=== PATIENT | female | born 1960 | race Caucasian/White ===

== ENCOUNTER 2017-10-11 12:30 | Inpatient (IN) | payer MEDICARE ==
[~2017-10-11] VITALS: Ht 175.3 cm; Wt 106.7 kg
[2017-10-11 14:55] VITALS: BP 129/82
[2017-10-11] MEDS ORDERED: NITROGLYCERIN SINGLE TAB 0.4 MG SL PRN (15:30)
[2017-10-11] MEDS ORDERED: ONDANSETRON 2MG/ML, 2ML IVPush PRN (15:30)
[2017-10-11] MEDS ORDERED: morphine SULFATE 10 MG/ML, 1ML IVPush PRN (15:30)
[2017-10-11] MEDS: INSULIN ASPART 100 UNITS/ML, PEN SQ-INSULIN SCH ×3 (16:00→22:40)
[2017-10-11] MEDS ORDERED: PLEASE ENTER HEIGHT AND WEIGHT MC SCH (16:00)
[2017-10-11] MEDS ORDERED: ACETAMINOPHEN 325 MG TABLET PO PRN (16:00)
[2017-10-11] MEDS ORDERED: PLEASE ENTER ALLERGIES MC SCH (16:30)
[2017-10-11] MEDS ORDERED: Enoxaparin 1 mg/kg protocol SQ SCH (19:00)
[2017-10-11 20:19] VITALS: BP 156/78
[2017-10-11] MEDS ORDERED: DOCUSATE 100 MG CAPSULE PO PRN (21:00)
[2017-10-11] MEDS ORDERED: ZOLPIDEM 5MG TABLET PO PRN (21:00)
[2017-10-11] MEDS: OSELTAMIVIR 75 MG CAPSULE PO SCH (21:31)
[2017-10-11] MEDS: ATORVASTATIN 40 MG TABLET PO SCH (21:31)
[2017-10-11] MEDS: GUAIFENESIN/DM 200-20MG, 10ML UDC PO PRN (21:32)
[2017-10-12] MEDS: ENOXAPARIN 100 MG/ML SQ SCH ×3 (00:17→22:39)
[2017-10-12 02:27] VITALS: BP 132/75
[2017-10-12 05:59] LABS: BASOPHILS # (AUTO) 0.02 x10^3/uL (0-0.1); BASOPHILS % (AUTO) 0 % (0-1); EOSINOPHILS # (AUTO) 0.05 x10^3/uL (0-0.4); EOSINOPHILS % (AUTO) 1 % (1-7); LYMPHOCYTES # (AUTO) 1.26 x10^3/uL (1-3.4); LYMPHOCYTES % (AUTO) 20 % (22-44); MD NO; MEAN CORPUSCULAR HEMOGLOBIN 30.9 pg (27.0-34.8); MEAN CORPUSCULAR HGB CONC 33.1 g/dL (32.4-35.8); MEAN CORPUSCULAR VOLUME 93.5 fL (80-100); MEAN PLATELET VOLUME 8.8 fL (7.4-10.4); MONOCYTES # (AUTO) 0.64 x10^3/uL (0.2-0.8); MONOCYTES % (AUTO) 10 % (2-9); NEUTROPHILS # (AUTO) 4.39 x10^3/uL (1.8-6.8); NEUTROPHILS % (AUTO) 69 % (42-75); PLATELET COUNT 178 x10^3/uL (130-400); RED BLOOD COUNT 4.38 x10^6/uL (3.82-5.3); RED CELL DISTRIBUTION WIDTH 14.4 % (9.6-15.2)
[2017-10-12 06:10] LABS: CHLORIDE 108 mmol/L (98-107)
[2017-10-12] MEDS: ASPIRIN 81 MG TABLET EC PO SCH (06:21)
[2017-10-12 06:40] LABS: ALANINE AMINOTRANSFERASE 26 U/L (12-78); ALBUMIN 2.2 g/dL (3.4-5.0); ALKALINE PHOSPHATASE 47 U/L (45-117); ANION GAP 10 mmol/L (5-15); BILIRUBIN,TOTAL 0.2 mg/dL (0.2-1.0); CALCIUM 7.6 mg/dL (8.5-10.1); CHOL/HDL RATIO 4.9; CHOLESTEROL, TOTAL 165 mg/dL (140-239); CREATININE 1.07 mg/dL (0.55-1.02); HDL CHOL % 21 % (28-40); HDL CHOLESTEROL (DIRECT) 34 mg/dL (40-60); TOTAL PROTEIN 5.9 g/dL (6.4-8.2); TRIGLYCERIDES 433 mg/dL (50-200)
[2017-10-12] MEDS: INSULIN ASPART 100 UNITS/ML, PEN SQ-INSULIN SCH ×3 (07:00→16:00)
[2017-10-12 08:11] LABS: HEMOGLOBIN A1C 10.3 % (4.2-6.3)
[2017-10-12 08:33] VITALS: BP 170/83
[2017-10-12] MEDS: OSELTAMIVIR 75 MG CAPSULE PO SCH ×2 (08:47→22:39)
[2017-10-12 10:38] LABS: CULTURE INDICATED? ORDERED BY PHYSICIAN; MICROSCOPIC INDICATED
[2017-10-12] MEDS: GABAPENTIN 400 MG CAPSULE PO SCH ×2 (12:53→22:38)
[2017-10-12 14:00] VITALS: BP 174/90
[2017-10-12] MEDS: OXYcodone IR 5MG TABLET PO PRN ×2 (14:19→22:40)
[2017-10-12 20:57] VITALS: BP_SYST 160; BP_SYST 163; BP_DIAS 73
[2017-10-12] MEDS: ATORVASTATIN 40 MG TABLET PO SCH (22:38)
[2017-10-12] MEDS: LISINOPRIL 5 MG TABLET PO SCH (22:38)
[2017-10-13 01:53] VITALS: BP 156/77
[2017-10-13] MEDS: ASPIRIN 81 MG TABLET EC PO SCH (06:07)
[2017-10-13] MEDS: OXYcodone IR 5MG TABLET PO PRN ×2 (06:07→20:40)
[2017-10-13] MEDS: INSULIN ASPART 100 UNITS/ML, PEN SQ-INSULIN SCH ×4 (07:00→22:02)
[2017-10-13 07:52] VITALS: BP 144/76
[2017-10-13] MEDS: LISINOPRIL 5 MG TABLET PO SCH ×2 (09:06→20:39)
[2017-10-13] MEDS: OSELTAMIVIR 75 MG CAPSULE PO SCH ×2 (09:06→20:39)
[2017-10-13] MEDS: GABAPENTIN 400 MG CAPSULE PO SCH ×2 (09:06→20:40)
[2017-10-13] MEDS: ENOXAPARIN 40 MG/0.4 ML SQ SCH (11:45)
[2017-10-13] MEDS ORDERED: ENOXAPARIN 100 MG/ML SQ SCH (12:00)
[2017-10-13] MEDS ORDERED: REGADENOSON 0.4 MG/5 ML SYRINGE ONE (12:15)
[2017-10-13 14:52] VITALS: BP 154/68
[2017-10-13] MEDS ORDERED: FENTANYL PF 100 MCG/2ML ONE (15:24)
[2017-10-13] MEDS ORDERED: TICAGRELOR 90 MG TABLET ONE (15:24)
[2017-10-13] MEDS ORDERED: MIDAZOLAM 1 MG/ML, 5ML ONE (15:24)
[2017-10-13] MEDS ORDERED: VERAPAMIL 2.5 MG/ML, 2ML ONE (15:24)
[2017-10-13] MEDS ORDERED: BIVALIRUDIN 250 MG ONE (15:25)
[2017-10-13] MEDS ORDERED: LIDOCAINE 2%, 20ML ONE (15:25)
[2017-10-13] MEDS ORDERED: HEPARIN 1,000 UNITS/ML, 10ML ONE (15:25)
[2017-10-13] MEDS ORDERED: LABETALOL 5MG/ML, 20ML ONE (16:28)
[2017-10-13 20:00] VITALS: BP 158/78
[2017-10-13] MEDS: ATORVASTATIN 40 MG TABLET PO SCH (20:39)
[2017-10-14] MEDS: ENOXAPARIN 40 MG/0.4 ML SQ SCH ×3 (00:20→23:36)
[2017-10-14 01:46] VITALS: BP 124/74
[2017-10-14] MEDS: OXYcodone IR 5MG TABLET PO PRN ×3 (03:11→20:47)
[2017-10-14 05:04] LABS: ALBUMIN 2.2 g/dL (3.4-5.0); ANION GAP 5 mmol/L (5-15); CALCIUM 7.6 mg/dL (8.5-10.1); CHLORIDE 104 mmol/L (98-107); CREATININE 1.17 mg/dL (0.55-1.02)
[2017-10-14] MEDS: ASPIRIN 81 MG TABLET EC PO SCH (06:05)
[2017-10-14] MEDS ORDERED: CARVEDILOL 3.125 MG TABLET PO SCH (06:30)
[2017-10-14 07:14] VITALS: BP 178/77
[2017-10-14] MEDS ORDERED: INSULIN NPH HUMAN 100 UNIT/ML, 3ML VIAL SQ-INSULIN SCH (08:00)
[2017-10-14] MEDS: INSULIN ASPART 100 UNITS/ML, PEN SQ-INSULIN SCH ×4 (10:30→20:47)
[2017-10-14] MEDS: LISINOPRIL 5 MG TABLET PO SCH ×2 (10:31→20:48)
[2017-10-14] MEDS: OSELTAMIVIR 75 MG CAPSULE PO SCH ×2 (10:31→20:48)
[2017-10-14] MEDS: CARVEDILOL 6.25 MG TABLET PO SCH ×2 (10:31→17:34)
[2017-10-14] MEDS: CLOPIDOGREL 75 MG TABLET PO SCH (10:31)
[2017-10-14] MEDS: GABAPENTIN 400 MG CAPSULE PO SCH ×2 (10:31→20:47)
[2017-10-14] MEDS: GUAIFENESIN/DM 200-20MG, 10ML UDC PO PRN (10:44)
[2017-10-14 14:45] VITALS: BP 139/71
[2017-10-14] MEDS: INSULIN NPH HUMAN 100 UNIT/ML, 3ML VIAL SQ-INSULIN SCH (17:36)
[2017-10-14] MEDS ORDERED: CARVEDILOL 6.25 MG TABLET PO SCH (18:00)
[2017-10-14 20:35] VITALS: BP 168/83
[2017-10-14] MEDS: ATORVASTATIN 40 MG TABLET PO SCH (20:47)
[2017-10-15 01:41] VITALS: BP_SYST 155; BP_SYST 176; BP_SYST 182; BP_DIAS 77; BP_DIAS 84; BP_DIAS 85
[2017-10-15 05:46] LABS: ALBUMIN 2.2 g/dL (3.4-5.0); ANION GAP 6 mmol/L (5-15); CALCIUM 8.4 mg/dL (8.5-10.1); CHLORIDE 108 mmol/L (98-107); CREATININE 0.84 mg/dL (0.55-1.02)
[2017-10-15] MEDS: CARVEDILOL 6.25 MG TABLET PO SCH (06:46)
[2017-10-15] MEDS: ASPIRIN 81 MG TABLET EC PO SCH (06:46)
[2017-10-15] MEDS: OXYcodone IR 5MG TABLET PO PRN (07:05)
[2017-10-15 07:08] VITALS: BP 156/95
[2017-10-15] MEDS ORDERED: CARV6.2512 PO (07:14)
[2017-10-15] MEDS ORDERED: ASPI-621 PO (07:14)
[2017-10-15] MEDS ORDERED: OSEL75CA PO (07:14)
[2017-10-15] MEDS ORDERED: INSU100I13 SUBD (07:14)
[2017-10-15] MEDS ORDERED: GABA-827 PO (07:14)
[2017-10-15] MEDS ORDERED: ATOR40TA78 PO (07:14)
[2017-10-15] MEDS ORDERED: LISI5TAB7 PO (07:14)
[2017-10-15] MEDS ORDERED: CLOP75TA PO (07:16)
[2017-10-15] MEDS: INSULIN NPH HUMAN 100 UNIT/ML, 3ML VIAL SQ-INSULIN SCH (09:01)
[2017-10-15] MEDS: INSULIN ASPART 100 UNITS/ML, PEN SQ-INSULIN SCH (09:01)
[2017-10-15] MEDS: GABAPENTIN 400 MG CAPSULE PO SCH (09:02)
[2017-10-15] MEDS: OSELTAMIVIR 75 MG CAPSULE PO SCH (09:02)
[2017-10-15] MEDS: LISINOPRIL 5 MG TABLET PO SCH (09:02)
[2017-10-15] MEDS: CLOPIDOGREL 75 MG TABLET PO SCH (09:02)
== END 2017-10-15 11:46 | disposition home or self-care (01) | DRG 280 ==
LOC: 5SO 14:26
PROVIDERS: ADMIT Hospitalist; ATTEND Internal Medicine
PROC: 4A023N7 Measurement of Cardiac Sampling and Pressure, Left Heart, Percutaneous Approach (ICD-10-PCS; principal; 2017-10-13)
PROC: B2111ZZ Fluoroscopy of Multiple Coronary Arteries using Low Osmolar Contrast (ICD-10-PCS; 2017-10-13)
PROC: B2151ZZ Fluoroscopy of Left Heart using Low Osmolar Contrast (ICD-10-PCS; 2017-10-13)
DX: I21.4 Non-ST elevation (NSTEMI) myocardial infarction (principal); E43 Unspecified severe protein-calorie malnutrition; E11.51 Type 2 diabetes mellitus with diabetic peripheral angiopathy without gangrene; Z68.34 Body mass index [BMI] 34.0-34.9, adult; E11.65 Type 2 diabetes mellitus with hyperglycemia; E66.01 Morbid (severe) obesity due to excess calories; E78.1 Pure hyperglyceridemia; G54.6 Phantom limb syndrome with pain; I11.9 Hypertensive heart disease without heart failure; I25.10 Atherosclerotic heart disease of native coronary artery without angina pectoris; J10.1 Influenza due to other identified influenza virus with other respiratory manifestations; J40 Bronchitis, not specified as acute or chronic; M10.9 Gout, unspecified; Z79.02 Long term (current) use of antithrombotics/antiplatelets; Z82.49 Family history of ischemic heart disease and other diseases of the circulatory system; Z87.01 Personal history of pneumonia (recurrent); Z87.891 Personal history of nicotine dependence; Z89.512 Acquired absence of left leg below knee; Z89.612 Acquired absence of left leg above knee; Z90.710 Acquired absence of both cervix and uterus; Z88.8 Allergy status to other drugs, medicaments and biological substances
CPT/HCPCS: 36415; 78452; 80048; 80053; 80061; 81001; 82040; 82962; 83036; 83880; 84484; 85025; 87086; 93005; 93017; 93306; 93458; 99156; 99157; C1760; C1769; C1894; J0583; J1644; J1650; J1815; J2250; J2405; J2785; J3010; J3490; A9502; C9898; Q9967